=== PATIENT | male | born 1960 | race African-American/Black ===

== ENCOUNTER 2019-01-25 09:11 | Outpatient (CLI) | payer OTHER ==
--- NOTE | 2019-01-25 10:20 | RAD ---
XR Lumbar Spine 2 Or 3 View History: Low back pain Comparison: None. Findings: No AP radiographs were obtained. Two surgical clips in the retroperitoneum at the level of the L4 vertebra. Mild narrowing of the L3/L4, L4/L5, and L5/S1 disc space. Moderate facet arthropathy throughout the l umbar spine. No listhesis. No abnormal translation with flexion or extension. Impression: No translation with flexion or extension.
== END 2019-01-25 09:12 | disposition home or self-care (01) ==
LOC: TBSIIMAG 09:11
PROVIDERS: ATTEND Neurological Surgery
DX: M54.5 Low back pain (principal)
CPT/HCPCS: 72100